=== PATIENT | female | born 1995 | race Caucasian/White ===

== ENCOUNTER 2018-12-29 06:43 | Inpatient (IN) | payer BC ==
[2018-12-29] MEDS ORDERED: Ampicillin 2 GM in Sodium Chloride 0.9% 100 ML IV ONE (08:09)
[2018-12-29] MEDS ORDERED: Misoprostol 200 MCG Tab PO PRN (08:09)
[2018-12-29] MEDS ORDERED: Water For Irrigation,Sterile 1,000 ML Container IRR PRN (08:09)
[2018-12-29] MEDS ORDERED: Butorphanol 1 MG/ML SDV IVPUSH PRN (08:09)
[2018-12-29] MEDS ORDERED: Methylergonovine 0.2 MG/1 ML Amp IM PRN (08:09)
[2018-12-29] MEDS ORDERED: Tranexamic Acid 1,000 MG in Sodium Chloride 0.9% 100 ML IV PRN (08:09)
[2018-12-29] MEDS ORDERED: Carboprost Tromethamine 250 MCG/1 ML Amp IM PRN (08:09)
[2018-12-29] MEDS ORDERED: Sodium Chloride 0.9% 2.5 ML Syringe FLUSH PRN (08:09)
[2018-12-29] MEDS ORDERED: Lidocaine 1% 50 ML MDV INJECT PRN (08:09)
[2018-12-29] MEDS ORDERED: Nalbuphine 10 MG/1 ML Vial IVPUSH PRN (08:09)
[2018-12-29] MEDS ORDERED: Sodium Chloride 0.9% 10 ML Syringe FLUSH PRN (08:09)
[2018-12-29] MEDS ORDERED: Sodium Chloride 0.9% 10 ML SDV IV PRN (08:09)
[2018-12-29] MEDS ORDERED: Oxytocin/0.9 % Sodium Chloride 30 UNIT/500 ML BAG IV SCH ×2 (08:15→11:45)
[2018-12-29] MEDS: Lactated Ringers 1,000 ML IV SCH ×3 (08:39→22:18)
[2018-12-29] MEDS ORDERED: Terbutaline 1 MG/ML SDV SUBCUT PRN (11:31)
[2018-12-29] MEDS ORDERED: Misoprostol 25 MCG (1/4 of 100 MCG) Tab VAG PRN ×2 (11:31)
[2018-12-29] MEDS: Ampicillin 1 GM in Sodium Chloride 0.9% 50 ML IV SCH ×3 (12:40→20:51)
[2018-12-29] MEDS ORDERED: fentaNYL 100 MCG/2 ML SDV ONE (21:03)
[2018-12-29] MEDS ORDERED: Bupivacaine 0.25% 10 ML SDV ONE (21:03)
--- NOTE | 2018-12-29 21:08 | PCM.PREANE ---
Preanesthetic Assessment - Anesthesia/Transfusion/Family Hx Anesthesia History: No Prior Anesthesia Transfusion History: No Prior Transfusion(s) - Review of Systems General: No Symptoms Pulmonary: No Symptoms Cardiovascular: No Symptoms Gastrointestinal: No Symptoms Neurological: No Symptoms Other: Reports: None - Physical Assessment Height: 5 ft 7 in Weight: 139.253 kg ASA Class: 3 Mental Status: Alert & Oriented x3 Airway Class: Mallampati = 2 Dentition: Reports: Normal Dentition Thyro-Mental Finger Breadths: 3 Mouth Opening Finger Breadths: 3 ROM/Head Extension: Full Lungs: Clear to Auscultation, Normal Respiratory Effort Cardiovascular: Regular Rate, Regular Rhythm - Lab Values: Laboratory Last Values WBC 9.28 K/uL (4.0-11.0) 12/29/18 08:30 RBC 4.16 M/uL (4.30-5.90) L 12/29/18 08:30 Hgb 11.7 g/dL (12.0-16.0) L 12/29/18 08:30 Hct 36.3 % (36.0-46.0) 12/29/18 08:30 MCV 87.3 fL (80.0-98.0) 12/29/18 08:30 MCH 28.1 pg (27.0-32.0) 12/29/18 08:30 MCHC 32.2 g/dL (31.0-37.0) 12/29/18 08:30 RDW Std Deviation 49.0 fl (28.0-62.0) 12/29/18 08:30 RDW Coeff of Benny 15 % (11.0-15.0) 12/29/18 08:30 Plt Count 246 K/uL (150-400) 12/29/18 08:30 MPV 10.30 fL (7.40-12.00) 12/29/18 08:30 Nucleated RBC % 0.0 /100WBC 12/29/18 08:30 Nucleated RBCs # 0 K/uL 12/29/18 08:30 Blood Type A POSITIVE 12/29/18 08:30 Antibody Screen NEGATIVE 12/29/18 08:30 - Allergies Allergies/Adverse Reactions: Allergies Allergy/AdvReac Type Severity Reaction Status Date / Time No Known Allergies Allergy Verified 10/17/18 18:42 - Acknowledgements Anesthesia Type Planned: Epidural Pt an Appropriate Candidate for the Planned Anesthesia: Yes Alternatives and Risks of Anesthesia Discussed w Pt/Guardian: Yes Pt/Guardian Understands and Agrees with Anesthesia Plan: Yes Additional Comments: Plan continuous labor epidural. PreAnesthesia Questionnaire HEENT History: Reports: Impaired Vision Cardiovascular History: Reports: None Respiratory History: Reports: None Gastrointestinal History: Reports: None Genitourinary History: Reports: None CYTOLOGY TECHNOLOGIST History: Reports: : 1 Para: 0 LMP (Approximate): Musculoskeletal History: Reports: Fracture (Right ankle fracture) Neurological History: Reports: None Psychiatric History: Reports: None Endocrine/Metabolic History: Reports: Diabetes, Gestational (insulin dependent) , Obesity/BMI 30+ Hematologic History: Reports: None Immunologic History: Reports: None Oncologic (Cancer) History: Reports: None Dermatologic History: Reports: None - Infectious Disease History Infectious Disease History: Reports: Chicken Pox - Past Surgical History HEENT Surgical History: Reports: Oral Surgery ([place] [facility]) Female Surgical History: Reports: None Musculoskeletal Surgical History: Reports: None - SUBSTANCE USE Smoking Status *Q: Never Smoker Second Hand Smoke Exposure: No Recreational Drug Use History: No - HOME MEDS Home Medications: Home Meds Insulin Glarg,Human.Rec.Analog [Lantus] 12 units PO BEDTIME 12/29/18 [History] Pnv No.95/Ferrous Fum/Folic AC [ Caplet] 1 tab PO DAILY 12/29/18 [ History] - CURRENT (IN HOUSE) MEDS Current Meds: Current Medications Butorphanol Tartrate (Stadol) 1 mg IVPUSH Q1H PRN PRN Reason: Pain Last Admin: 12/29/18 18:07 Dose: 1 mg Carboprost Tromethamine (Hemabate Ds) 250 mcg IM ASDIRECTED PRN PRN Reason: Post Hemorrhage Tranexamic Acid 1,000 mg/ (Sodium Chloride) 110 mls @ 660 mls/hr IV ONETIME PRN PRN Reason: Bleeding Lactated Ringer's (Ringers, Lactated) 1,000 mls @ 150 mls/hr IV ASDIRECTED SEBASTIEN Last Admin: 12/29/18 20:12 Dose: 999 mls/hr Oxytocin/Sodium Chloride (Oxytocin 30 Unit/500 Ml-Ns) 30 unit in 500 mls @ 500 mls/hr IV TITRATE SEBASTIEN Ampicillin Sodium 1 gm/ Sodium (Chloride) 50 mls @ 100 mls/hr IV Q4H SEBASTIEN Last Admin: 12/29/18 20:51 Dose: 100 mls/hr Oxytocin/Sodium Chloride (Oxytocin 30 Unit/500 Ml-Ns) 30 unit in 500 mls @ 2 mls/hr IV TITRATE SEBASTIEN; Protocol Last Titration: 12/29/18 19:06 Dose: 4 munits/min, 4 mls/hr Lidocaine HCl (Xylocaine 1%) 50 ml INJECT ONETIME PRN PRN Reason: Laceration repair Methylergonovine Maleate (Methergine) 0.2 mg IM ASDIRECTED PRN PRN Reason: Post Hemorrhage Misoprostol (Cytotec) 200 mcg PO ONETIME PRN PRN Reason: Post Hemorrhage Misoprostol (Cytotec) 25 mcg VAG ONETIME PRN PRN Reason: Cervical Ripening Last Admin: 12/29/18 11:41 Dose: 25 mcg Misoprostol (Cytotec) 25 mcg VAG Q4H PRN PRN Reason: Cervical Ripening Nalbuphine HCl (Nubain) 10 mg IVPUSH Q1H PRN PRN Reason: Pain (severe 7-10) Sodium Chloride (Saline Flush) 10 ml FLUSH ASDIRECTED PRN PRN Reason: Keep Vein Open Sodium Chloride (Saline Flush) 2.5 ml FLUSH ASDIRECTED PRN PRN Reason: Keep Vein Open Sodium Chloride (Normal Saline) 10 ml IV ASDIRECTED PRN PRN Reason: IV Use Sterile Water (Sterile Water For Irrigation) 1,000 ml IRR ASDIRECTED PRN PRN Reason: delivery Terbutaline Sulfate (Brethine) 0.25 mg SUBCUT ASDIRECTED PRN PRN Reason: Tacysystole Discontinued Medications Ampicillin Sodium 2 gm/ Sodium (Chloride) 100 mls @ 200 mls/hr IV ONETIME ONE Stop: 12/29/18 08:38 Last Admin: 12/29/18 08:41 Dose: 200 mls/hr Fentanyl/Bupivacaine HCl (Ozfvofhj-Bflsw-Nz 2 Mcg/Ml-0.125%) Confirm Administered Dose 100 mls @ as directed .ROUTE .STK-MED ONE Stop: 12/29/18 20:08
[2018-12-29] MEDS ORDERED: ePHEDrine 50 MG/ML SDV ONE (22:05)
[2018-12-29] MEDS ORDERED: Dextrose 5%-0.9% NaCl 1,000 ML IV SCH (22:15)
[2018-12-30] MEDS: Ampicillin 1 GM in Sodium Chloride 0.9% 50 ML IV SCH (00:40)
[2018-12-30] MEDS ORDERED: Acetaminophen 500 MG Tab PO PRN (02:33)
[2018-12-30] MEDS ORDERED: Lanolin 100% Cream 7 GM Tube TOP PRN (02:33)
[2018-12-30] MEDS ORDERED: Ondansetron 4 MG/2 ML SDV IVPUSH PRN (02:33)
[2018-12-30] MEDS ORDERED: oxyCODONE 5 MG Tab PO PRN (02:33)
[2018-12-30] MEDS ORDERED: Ibuprofen 400 MG Tab PO PRN (02:33)
[2018-12-30] MEDS ORDERED: Measles, Mumps & Rubella Vaccine 0.5 ML SDV SUBCUT ONE (02:33)
[2018-12-30] MEDS ORDERED: Docusate Sodium 100 MG Cap PO PRN (02:33)
[2018-12-30] MEDS ORDERED: Witch Hazel Medicated Pads 40/Jar TOP PRN (02:33)
[2018-12-30] MEDS ORDERED: Bisacodyl 10 MG Supp RECTAL PRN (02:33)
[2018-12-30] MEDS ORDERED: Benzocaine/Menthol 20%-0.5% Spray 78 GM Cannister TOP PRN (02:33)
[2018-12-30] MEDS ORDERED: Aluminum Hydroxide/Magnesium Hydroxide/Simethicone Susp 30 ML Cup PO PRN (02:33)
--- NOTE | 2018-12-30 02:43 | PCM.OPNOTE ---
- General Post-Op/Procedure Note Date of Surgery/Procedure: 12/30/18 Operative Procedure(s): /2nd MLL repaired Findings: Viable female APGARs 9, 9 weight pending. Spontaneous delivery intact placenta with 3V cord Pre Op Diagnosis: 39/2 week IUP. SROM. GBBS +. Type 2 DM Post-Op Diagnosis: Same Anesthesia Technique: Epidural Primary Surgeon: Zena Lay EBL in mLs: 350 Complications: none known Condition: Stable Free Text/Narrative:: Dictation [id number]
--- NOTE | 2018-12-30 03:34 | OR ---
SURGEON: Zena Lay M.D. DATE OF PROCEDURE: 12/30/2018 PREOPERATIVE DIAGNOSES: 1. 39 week intrauterine . 2. Spontaneous rupture of membranes. 3. Group B beta strep positive. 4. Type 2 diabetes. POSTOPERATIVE DIAGNOSES: 1. 39 week intrauterine . 2. Spontaneous rupture of membranes. 3. Group B beta strep positive. 4. Type 2 diabetes. PROCEDURE: Spontaneous vaginal delivery, second-degree midline laceration repaired. ANESTHESIA: Epidural. ESTIMATED BLOOD LOSS: 350 mL. FINDINGS: A viable female, score at 9 at one minute and 9 at five minutes. Weight pending. Spontaneous delivery, intact placenta, 3-vessel cord. DISPOSITION: Infant to nursery, mom in LDRP. PROCEDURE DETAILS: Flor is a 23-year-old G1, P0, at 39 weeks' gestational age, who presented on the morning of 12/29/2018 with leakage of fluid, clear. On initial examination, she was found to be grossly ruptured. She is group B beta strep positive. Therefore, she was initiated on ampicillin prophylaxis, admitted, routine labs were drawn. IV hydration was initiated. Initial glucose was normal at 95. The patient was monitored and did not have any evidence of active labor. Cervix was quite unfavorable at this point, 0.5 cm thick and minus 3. Therefore, was initiated on Cytotec ripening, received a single dose and responded nicely to this, began becki regularly. Therefore, transition to Pitocin, was found to be 2 cm, 50% effaced, minus 3 station. heart tones category 1. The patient continued to progress throughout the afternoon. That evening, she underwent regional anesthesia from epidural, became more comfortable, and at that time was found to be 5 cm. Over the next few hours, progressed nicely to complete 100% effaced, +1 station, began pushing efforts. An insulin drip had been initiated via protocol when she was in active labor. With pushing efforts, the patient was able to push readily to a +3 station, I was called for delivery. Upon my arrival, the patient was placed in modified dorsal lithotomy position, was prepped and draped in usual aseptic manner. Continuing with pushing efforts, was able to deliver 's head in direct OP position spontaneously atraumatically followed by anterior shoulder, posterior shoulder, and remaining body without difficulty. The 's oropharynx and nares bulb suctioned. was handed off to her mother with attending nursing staff at the side. After delay, cord was clamped x2 and cut. Cord arterial, cord venous, cord blood sampling was obtained. Light pressure was applied while the placenta was delivered spontaneously intact. Vigorous fundal uterine massage was then applied while 30 units Pitocin was delivered in 500 mL IV fluid. Upon inspection of cervix, vaginal sidewall, and perineum, there was found to be a second-degree midline laceration that was repaired using 3-0 Vicryl in the usual fashion. The patient tolerated the repair well overall. Hemostasis appeared evident. Sponge count, instrument count, needle count was correct. The patient remained in LDRP. We will continue to monitor her glucoses. to nursery. JERED / RUDOLPH /[id number] MTDD
[2018-12-30] MEDS: Ibuprofen 800 MG Tab PO PRN ×2 (04:00→18:37)
--- NOTE | 2018-12-30 08:00 | PCM48HPAN ---
Post Anesthesia Note - EVALUATION WITHIN 48HRS OF ANESTHETIC Vital Signs in Normal Range: Yes Patient Participated in Evaluation: Yes Respiratory Function Stable: Yes Airway Patent: Yes Cardiovascular Function Stable: Yes Hydration Status Stable: Yes Pain Control Satisfactory: Yes Nausea and Vomiting Control Satisfactory: Yes Mental Status Recovered: Yes - COMMENTS/OBSERVATIONS Free Text/Narrative:: Patient resting in bed. Denies any issues related to anesthesia. No concerns at this time.
[2018-12-30] MEDS: Acetaminophen 500 MG Tab PO PRN (18:38)
[2018-12-31] MEDS: Acetaminophen 500 MG Tab PO PRN ×2 (03:22→11:34)
--- NOTE | 2018-12-31 08:50 | PCM.PNPP ---
- General Info Date of Service: 12/31/18 Subjective Update: 23 yo P1 s/p PPD1 , Is trying to breastfeed has seen ent consultant , normal lochia Functional Status: Reports: Pain Controlled, Ambulating, Urinating - Review of Systems General: Reports: No Symptoms HEENT: Reports: No Symptoms Pulmonary: Reports: No Symptoms Cardiovascular: Reports: No Symptoms Gastrointestinal: Reports: No Symptoms Genitourinary: Reports: No Symptoms Musculoskeletal: Reports: No Symptoms Skin: Reports: No Symptoms Neurological: Reports: No Symptoms Psychiatric: Reports: No Symptoms - General Info Date of Service: 12/31/18 - Patient Data Vital Signs - Most Recent: Last Vital Signs Temp 36.2 C 12/31/18 07:15 Pulse 81 12/31/18 07:15 Resp 18 12/31/18 07:15 BP 126/81 12/31/18 07:15 Pulse Ox 96 12/31/18 07:15 Weight - Most Recent: 139.253 kg Lab Results - Last 24 Hours: Laboratory Results - last 24 hr 12/30/18 12/31/18 12/31/18 Range/Units 19:57 05:56 07:11 Hgb 9.4 L (12.0-16.0) g/dL Hct 29.6 L (36.0-46.0) % POC Glucose 123 H 85 (60-110) mg/dL Med Orders - Current: Current Medications Acetaminophen (Tylenol Extra Strength) 500 mg PO Q4H PRN PRN Reason: Pain Acetaminophen (Tylenol Extra Strength) 1,000 mg PO Q4H PRN PRN Reason: Pain Last Admin: 12/31/18 03:22 Dose: 1,000 mg Al Hydroxide/Mg Hydroxide (Mag-Al Plus) 30 ml PO Q8H PRN PRN Reason: Heartburn Benzocaine/Menthol (Dermoplast Pain Relief 20%-0.5% [place]) 78 gm TOP ASDIRECTED PRN PRN Reason: Perineal Comfort Measure Last Admin: 12/30/18 04:01 Dose: 1 can Bisacodyl (Dulcolax) 10 mg RECTAL ONETIME PRN PRN Reason: Constipation Carboprost Tromethamine (Hemabate Ds) 250 mcg IM ASDIRECTED PRN PRN Reason: Post Hemorrhage Docusate Sodium (Colace) 100 mg PO BID PRN PRN Reason: Constipation Emollient Ointment (Lansinoh Hpa) 0 gm TOP ASDIRECTED PRN PRN Reason: Sore Nipples Last Admin: 12/30/18 04:00 Dose: 7 gram Tranexamic Acid 1,000 mg/ (Sodium Chloride) 110 mls @ 660 mls/hr IV ONETIME PRN PRN Reason: Bleeding Lactated Ringer's (Ringers, Lactated) 1,000 mls @ 150 mls/hr IV ASDIRECTED SEBASTIEN Last Admin: 12/29/18 22:18 Dose: 150 mls/hr Oxytocin/Sodium Chloride (Oxytocin 30 Unit/500 Ml-Ns) 30 unit in 500 mls @ 500 mls/hr IV TITRATE SEBASTIEN Oxytocin/Sodium Chloride (Oxytocin 30 Unit/500 Ml-Ns) 30 unit in 500 mls @ 2 mls/hr IV TITRATE SEBASTIEN; Protocol Last Titration: 12/29/18 23:43 Dose: 6 munits/min, 6 mls/hr Ibuprofen (Motrin) 400 mg PO Q4H PRN PRN Reason: Pain Ibuprofen (Motrin) 800 mg PO Q6H PRN PRN Reason: Pain Last Admin: 12/30/18 18:37 Dose: 800 mg Methylergonovine Maleate (Methergine) 0.2 mg IM ASDIRECTED PRN PRN Reason: Post Hemorrhage Misoprostol (Cytotec) 200 mcg PO ONETIME PRN PRN Reason: Post Hemorrhage Ondansetron HCl (Zofran) 4 mg IVPUSH Q6H PRN PRN Reason: Nausea/Vomiting Oxycodone HCl (Oxycodone) 5 mg PO Q2H PRN PRN Reason: Pain Sodium Chloride (Saline Flush) 10 ml FLUSH ASDIRECTED PRN PRN Reason: Keep Vein Open Sodium Chloride (Saline Flush) 2.5 ml FLUSH ASDIRECTED PRN PRN Reason: Keep Vein Open Sodium Chloride (Normal Saline) 10 ml IV ASDIRECTED PRN PRN Reason: IV Use Sterile Water (Sterile Water For Irrigation) 1,000 ml IRR ASDIRECTED PRN PRN Reason: delivery Last Admin: 12/30/18 02:13 Dose: 1,000 ml Witch Shikha (Tucks) 1 pad TOP ASDIRECTED PRN PRN Reason: comfort care Last Admin: 12/30/18 04:01 Dose: 1 tub Discontinued Medications Bupivacaine HCl (Sensorcaine-Mpf 0.25%) Confirm Administered Dose 10 ml .ROUTE .STK-MED ONE Stop: 12/29/18 21:04 Butorphanol Tartrate (Stadol) 1 mg IVPUSH Q1H PRN PRN Reason: Pain Last Admin: 12/29/18 18:07 Dose: 1 mg Ephedrine Sulfate (Ephedrine Sulfate) Confirm Administered Dose 50 mg .ROUTE .STK-MED ONE Stop: 12/29/18 22:06 Fentanyl (Sublimaze) Confirm Administered Dose 100 mcg .ROUTE .STK-MED ONE Stop: 12/29/18 21:04 Ampicillin Sodium 2 gm/ Sodium (Chloride) 100 mls @ 200 mls/hr IV ONETIME ONE Stop: 12/29/18 08:38 Last Admin: 12/29/18 08:41 Dose: 200 mls/hr Ampicillin Sodium 1 gm/ Sodium (Chloride) 50 mls @ 100 mls/hr IV Q4H SEBASTIEN Last Admin: 12/30/18 00:40 Dose: 100 mls/hr Fentanyl/Bupivacaine HCl (Zesgqohe-Leaou-Gb 2 Mcg/Ml-0.125%) Confirm Administered Dose 100 mls @ as directed .ROUTE .STK-MED ONE Stop: 12/29/18 20:08 Insulin Human Regular 100 unit (/ Sodium Chloride) 100 mls @ 0.5 mls/hr IV TITRATE SEBASTIEN; Protocol Last Titration: 12/30/18 01:15 Dose: 1.5 unit/hr, 1.5 mls/hr Dextrose/Sodium Chloride (Dextrose 5%-Normal Saline) 1,000 mls @ 100 mls/hr IV ASDIRECTED SEBASTIEN Last Admin: 12/29/18 23:16 Dose: 100 mls/hr Lidocaine HCl (Xylocaine 1%) 50 ml INJECT ONETIME PRN PRN Reason: Laceration repair Last Admin: 12/30/18 04:00 Dose: 50 ml Measles/Mumps/Rubella Vaccine Live (M-M-R Ii Vaccine) 0.5 ml SUBCUT .ONCE ONE Stop: 12/30/18 02:34 Misoprostol (Cytotec) 25 mcg VAG ONETIME PRN PRN Reason: Cervical Ripening Last Admin: 12/29/18 11:41 Dose: 25 mcg Misoprostol (Cytotec) 25 mcg VAG Q4H PRN PRN Reason: Cervical Ripening Nalbuphine HCl (Nubain) 10 mg IVPUSH Q1H PRN PRN Reason: Pain (severe 7-10) Terbutaline Sulfate (Brethine) 0.25 mg SUBCUT ASDIRECTED PRN PRN Reason: Tacysystole - Interaction Support Person: - Recovery Exam Fundal Tone: Firm Fundal Level: At Umbilicus Fundal Placement: Midline Lochia Amount: Scant Lochia Color: Rubra/Red Perineum Description: Other (see below) Other Perinuem Description: second degree laceration Episiotomy/Laceration: Approximated Bladder Status: Voiding - Exam General: Alert HEENT: Pupils Equal Neck: Supple Lungs: Clear to Auscultation Cardiovascular: Regular Rate, Regular Rhythm GI/Abdominal Exam: Normal Bowel Sounds Extremities: Normal Inspection Wound/Incisions: Healing Well Neurological: No New Focal Deficit Psy/Mental Status: Alert - Problem List & Annotations (1) Vaginal delivery SNOMED Code(s): 220780429 Code(s): O80 - ENCOUNTER FOR FULL-TERM UNCOMPLICATED DELIVERY Status: Acute Current Visit: Yes - Problem List Review Problem List Initiated/Reviewed/Updated: Yes - My Orders Last 24 Hours: My Active Orders 12/31/18 08:43 GLYCOSYLATED HEMOGLOBIN,HGBA1C [CHEM] Routine - Assessment Assessment:: 23yo P1 s/p PPD1 , Normal lochia , trying to establish - Plan Plan:: Discharge home encourage continuing to breastfeed HBAIC today 6 weeks [id number]
[2018-12-31 09:33] LABS: HEMOGLOBIN A1C 6.4 % (4.5-6.2)
[2018-12-31] MEDS: Ibuprofen 800 MG Tab PO PRN (16:33)
[2019-01-01] MEDS: Acetaminophen 500 MG Tab PO PRN ×3 (05:38→21:18)
--- NOTE | 2019-01-01 20:00 | PCM.PNPP ---
- General Info Date of Service: 01/01/19 Subjective Update: 23 yo P1 s/p PPD2 , Is trying to breastfeed has seen systems consultant , normal lochia Functional Status: Reports: Pain Controlled, Tolerating Diet, Ambulating, Urinating - Review of Systems General: Reports: No Symptoms HEENT: Reports: No Symptoms Pulmonary: Reports: No Symptoms Cardiovascular: Reports: No Symptoms Gastrointestinal: Reports: No Symptoms Genitourinary: Reports: No Symptoms Musculoskeletal: Reports: No Symptoms Skin: Reports: No Symptoms Neurological: Reports: No Symptoms - General Info Date of Service: 01/01/19 - Patient Data Vital Signs - Most Recent: Last Vital Signs Temp 36.1 C 01/01/19 08:57 Pulse 71 01/01/19 08:57 Resp 17 01/01/19 08:57 BP 127/69 01/01/19 08:57 Pulse Ox 97 01/01/19 08:57 Weight - Most Recent: 139.253 kg Lab Results - Last 24 Hours: Laboratory Results - last 24 hr 12/29/18 Range/Units 08:30 RPR Non Reactive (NonRea<1:1) Med Orders - Current: Current Medications Acetaminophen (Tylenol Extra Strength) 500 mg PO Q4H PRN PRN Reason: Pain Last Admin: 12/31/18 16:34 Dose: 500 mg Acetaminophen (Tylenol Extra Strength) 1,000 mg PO Q4H PRN PRN Reason: Pain Last Admin: 01/01/19 12:08 Dose: 1,000 mg Al Hydroxide/Mg Hydroxide (Mag-Al Plus) 30 ml PO Q8H PRN PRN Reason: Heartburn Benzocaine/Menthol (Dermoplast Pain Relief 20%-0.5% [place]) 78 gm TOP ASDIRECTED PRN PRN Reason: Perineal Comfort Measure Last Admin: 12/30/18 04:01 Dose: 1 can Bisacodyl (Dulcolax) 10 mg RECTAL ONETIME PRN PRN Reason: Constipation Carboprost Tromethamine (Hemabate Ds) 250 mcg IM ASDIRECTED PRN PRN Reason: Post Hemorrhage Docusate Sodium (Colace) 100 mg PO BID PRN PRN Reason: Constipation Last Admin: 12/31/18 09:59 Dose: 100 mg Emollient Ointment (Lansinoh Hpa) 0 gm TOP ASDIRECTED PRN PRN Reason: Sore Nipples Last Admin: 12/30/18 04:00 Dose: 7 gram Tranexamic Acid 1,000 mg/ (Sodium Chloride) 110 mls @ 660 mls/hr IV ONETIME PRN PRN Reason: Bleeding Lactated Ringer's (Ringers, Lactated) 1,000 mls @ 150 mls/hr IV ASDIRECTED SEBASTIEN Last Admin: 12/29/18 22:18 Dose: 150 mls/hr Oxytocin/Sodium Chloride (Oxytocin 30 Unit/500 Ml-Ns) 30 unit in 500 mls @ 500 mls/hr IV TITRATE SEBASTIEN Oxytocin/Sodium Chloride (Oxytocin 30 Unit/500 Ml-Ns) 30 unit in 500 mls @ 2 mls/hr IV TITRATE SEBASTIEN; Protocol Last Titration: 12/29/18 23:43 Dose: 6 munits/min, 6 mls/hr Ibuprofen (Motrin) 400 mg PO Q4H PRN PRN Reason: Pain Ibuprofen (Motrin) 800 mg PO Q6H PRN PRN Reason: Pain Last Admin: 12/31/18 16:33 Dose: 800 mg Methylergonovine Maleate (Methergine) 0.2 mg IM ASDIRECTED PRN PRN Reason: Post Hemorrhage Misoprostol (Cytotec) 200 mcg PO ONETIME PRN PRN Reason: Post Hemorrhage Ondansetron HCl (Zofran) 4 mg IVPUSH Q6H PRN PRN Reason: Nausea/Vomiting Oxycodone HCl (Oxycodone) 5 mg PO Q2H PRN PRN Reason: Pain Sodium Chloride (Saline Flush) 10 ml FLUSH ASDIRECTED PRN PRN Reason: Keep Vein Open Sodium Chloride (Saline Flush) 2.5 ml FLUSH ASDIRECTED PRN PRN Reason: Keep Vein Open Sodium Chloride (Normal Saline) 10 ml IV ASDIRECTED PRN PRN Reason: IV Use Sterile Water (Sterile Water For Irrigation) 1,000 ml IRR ASDIRECTED PRN PRN Reason: delivery Last Admin: 12/30/18 02:13 Dose: 1,000 ml Witch Shikah (Tucks) 1 pad TOP ASDIRECTED PRN PRN Reason: comfort care Last Admin: 12/30/18 04:01 Dose: 1 tub Discontinued Medications Bupivacaine HCl (Sensorcaine-Mpf 0.25%) Confirm Administered Dose 10 ml .ROUTE .STK-MED ONE Stop: 12/29/18 21:04 Butorphanol Tartrate (Stadol) 1 mg IVPUSH Q1H PRN PRN Reason: Pain Last Admin: 12/29/18 18:07 Dose: 1 mg Ephedrine Sulfate (Ephedrine Sulfate) Confirm Administered Dose 50 mg .ROUTE .STK-MED ONE Stop: 12/29/18 22:06 Fentanyl (Sublimaze) Confirm Administered Dose 100 mcg .ROUTE .STK-MED ONE Stop: 12/29/18 21:04 Ampicillin Sodium 2 gm/ Sodium (Chloride) 100 mls @ 200 mls/hr IV ONETIME ONE Stop: 12/29/18 08:38 Last Admin: 12/29/18 08:41 Dose: 200 mls/hr Ampicillin Sodium 1 gm/ Sodium (Chloride) 50 mls @ 100 mls/hr IV Q4H SEBASTIEN Last Admin: 12/30/18 00:40 Dose: 100 mls/hr Fentanyl/Bupivacaine HCl (Gkiulmin-Zcbls-Qf 2 Mcg/Ml-0.125%) Confirm Administered Dose 100 mls @ as directed .ROUTE .STK-MED ONE Stop: 12/29/18 20:08 Insulin Human Regular 100 unit (/ Sodium Chloride) 100 mls @ 0.5 mls/hr IV TITRATE SEBASTIEN; Protocol Last Titration: 12/30/18 01:15 Dose: 1.5 unit/hr, 1.5 mls/hr Dextrose/Sodium Chloride (Dextrose 5%-Normal Saline) 1,000 mls @ 100 mls/hr IV ASDIRECTED SEBASTIEN Last Admin: 12/29/18 23:16 Dose: 100 mls/hr Lidocaine HCl (Xylocaine 1%) 50 ml INJECT ONETIME PRN PRN Reason: Laceration repair Last Admin: 12/30/18 04:00 Dose: 50 ml Measles/Mumps/Rubella Vaccine Live (M-M-R Ii Vaccine) 0.5 ml SUBCUT .ONCE ONE Stop: 12/30/18 02:34 Misoprostol (Cytotec) 25 mcg VAG ONETIME PRN PRN Reason: Cervical Ripening Last Admin: 12/29/18 11:41 Dose: 25 mcg Misoprostol (Cytotec) 25 mcg VAG Q4H PRN PRN Reason: Cervical Ripening Nalbuphine HCl (Nubain) 10 mg IVPUSH Q1H PRN PRN Reason: Pain (severe 7-10) Terbutaline Sulfate (Brethine) 0.25 mg SUBCUT ASDIRECTED PRN PRN Reason: Tacysystole - Infant Interaction Support Person: - Recovery Exam Fundal Tone: Firm Fundal Level: 1 Fingerbreadths Below Umbilicus Fundal Placement: Midline Lochia Amount: Scant Lochia Color: Rubra/Red Perineum Description: Other (see below) Other Perinuem Description: second degree laceration Episiotomy/Laceration: Approximated Bladder Status: Voiding Urinary Elimination: Voided - Exam General: Alert HEENT: Pupils Equal Neck: Supple Lungs: Clear to Auscultation Cardiovascular: Regular Rate, Regular Rhythm GI/Abdominal Exam: Normal Bowel Sounds Extremities: Normal Inspection - Problem List & Annotations (1) Vaginal delivery SNOMED Code(s): 606158465 Code(s): O80 - ENCOUNTER FOR FULL-TERM UNCOMPLICATED DELIVERY Status: Acute Current Visit: Yes - Problem List Review Problem List Initiated/Reviewed/Updated: Yes - My Orders Last 24 Hours: My Active Orders 01/01/19 08:57 Ready for Discharge [RC] PER UNIT ROUTINE - Assessment Assessment:: 23yo P1 s/p PPD2 , Normal lochia - Plan Plan:: Discharge home
== END 2019-01-01 21:26 | disposition home or self-care (01) | DRG 560 ==
LOC: MW.OBCHECK 06:43 → MW.OB 06:44 → MW.OBCHECK 08:09 → OBSVTOIN 12-30 02:15 → MW.OB 12-30 05:31
PROVIDERS: ADMIT Obstetrics & Gynecology; ATTEND Obstetrics & Gynecology
PROC: 10E0XZZ Delivery of Products of Conception, External Approach (ICD-10-PCS; principal; 2018-12-30)
PROC: 3E0P7VZ Introduction of Hormone into Female Reproductive, Via Natural or Artificial Opening (ICD-10-PCS; 2018-12-30)
PROC: 3E033VJ Introduction of Other Hormone into Peripheral Vein, Percutaneous Approach (ICD-10-PCS; 2018-12-30)
PROC: 0KQM0ZZ Repair Perineum Muscle, Open Approach (ICD-10-PCS; 2018-12-30)
PROC: 3E0R3BZ Introduction of Anesthetic Agent into Spinal Canal, Percutaneous Approach (ICD-10-PCS; 2018-12-30)
DX: O99.824 Streptococcus B carrier state complicating childbirth (principal); O24.424 Gestational diabetes mellitus in childbirth, insulin controlled; O70.1 Second degree perineal laceration during delivery; Z3A.39 39 weeks gestation of pregnancy; Z37.0 Single live birth
CPT/HCPCS: 36415; 59025; 59409; 82803; 82962; 83036; 85014; 85018; 85027; 86593; 86850; 86900; 86901; A9270-GY; J0290; J0595; J2001; J2590; J7030; J7042; J7050; J7120

== ENCOUNTER 2022-02-02 06:19 | Day surgery (SDC) | payer BC ==
[~2022-02-02 06:19] MED LIST: Lactated Ringers 1,000 ML IV SCH; Sodium Chloride 0.9% 10 ML Syringe FLUSH PRN; Sodium Chloride 0.9% 2.5 ML Syringe FLUSH PRN; Sodium Chloride 0.9% 20 ML SDV IV PRN; ceFAZolin 2 GM in Premix Bag 1 BAG IV ONE
[2022-02-02] MEDS ORDERED: Ropivacaine 0.5% 5 MG/ML 30 ML SDV ONE ×2 (07:29→09:04)
[2022-02-02] MEDS ORDERED: Bupivacaine 0.25%/EPINEPHrine 1:200,000 10 ML SDV ONE (07:30)
[2022-02-02] MEDS ORDERED: Dexamethasone 4 MG/ML 5 ML MDV ONE (07:36)
[2022-02-02] MEDS ORDERED: Lidocaine 2% 5 ML SDV ONE (07:36)
[2022-02-02] MEDS ORDERED: Propofol 200 MG/20 ML SDV ONE (07:36)
[2022-02-02] MEDS ORDERED: Ondansetron 4 MG/2 ML SDV ONE (07:36)
[2022-02-02] MEDS ORDERED: fentaNYL 100 MCG/2 ML SDV ONE ×2 (07:36→10:19)
[2022-02-02] MEDS ORDERED: Rocuronium Bromide 50 MG/5 ML Syringe ONE ×2 (07:36→10:20)
[2022-02-02] MEDS ORDERED: Sugammadex Sodium 200 MG/2 ML VIAL ONE (07:36)
[2022-02-02] MEDS ORDERED: Ketorolac 30 MG/ML SDV ONE (07:36)
[2022-02-02] MEDS ORDERED: Metoclopramide 10 MG/2 ML SDV IVPUSH PRN (07:59)
[2022-02-02] MEDS ORDERED: fentaNYL 50 MCG/ML SDV IVPUSH PRN (07:59)
[2022-02-02] MEDS ORDERED: Morphine 2 MG/ML SYRINGE IVPUSH PRN (07:59)
[2022-02-02] MEDS ORDERED: Ondansetron 4 MG/2 ML SDV IVPUSH PRN (07:59)
[2022-02-02] MEDS ORDERED: Naloxone 0.4 MG/ML SDV IVPUSH PRN (07:59)
[2022-02-02] MEDS ORDERED: HYDROmorphone 1 MG/ML Syringe IVPUSH PRN (07:59)
[2022-02-02] MEDS ORDERED: Albuterol 0.083% 2.5 MG/3 ML Neb Soln NEB PRN (07:59)
[2022-02-02] MEDS ORDERED: Dexmedetomidine 200 MCG/2 ML SDV ONE (09:03)
[2022-02-02] MEDS ORDERED: Water For Injection, Sterile 20 ML ONE (09:03)
[2022-02-02] MEDS ORDERED: Indocyanine Green 25 MG SDV ONE (09:23)
[2022-02-02] MEDS ORDERED: Bupivacaine 0.5% 30 ML SDV ONE (09:23)
[2022-02-02] MEDS ORDERED: ceFAZolin 1 GM Vial ONE (09:23)
[2022-02-02] MEDS ORDERED: ePHEDrine 50 MG/ML SDV ONE (09:53)
[2022-02-02] MEDS ORDERED: HYDROmorphone 2 MG/ML Syringe ONE (11:54)
== END 2022-02-02 13:58 | disposition home or self-care (01) ==
LOC: MW.SDS 06:19
PROVIDERS: ATTEND Surgery
DX: K80.10 Calculus of gallbladder with chronic cholecystitis without obstruction (principal); K76.0 Fatty (change of) liver, not elsewhere classified; E11.9 Type 2 diabetes mellitus without complications; E66.9 Obesity, unspecified; Z79.899 Other long term (current) drug therapy; Z98.890 Other specified postprocedural states; Z68.43 Body mass index [BMI] 50.0-59.9, adult
CPT/HCPCS: 47562; 81025; J0690; J1100; J1170; J1885; J2704; J2795; J3010; J3490; J7120; 64488; J2405